=== PATIENT | female | born 1965 | race Caucasian/White ===

== ENCOUNTER → 2018-09-05 | Outpatient (CLI) | payer OTHER | LOC: M.RAD 15:24 | DX: Z12.31 Encounter for screening mammogram for malignant neoplasm of breast (principal) ==

== ENCOUNTER → 2018-09-12 | Outpatient (CLI) | payer OTHER | LOC: M.RAD 09-09 11:10 → M.ULTRA 09:00 → M.RAD 14:30 | DX: N63.11 Unspecified lump in the right breast, upper outer quadrant (principal) ==